=== PATIENT | female | born 2000 | race Caucasian/White ===

== ENCOUNTER 2018-06-10 01:56 | Emergency (ER) | payer SELFPAY | END 2018-06-10 03:25 | disposition home or self-care (01) | LOC: ERS 01:56 | DX: F41.0 Panic disorder [episodic paroxysmal anxiety] (principal); F32.9 Major depressive disorder, single episode, unspecified | CPT/HCPCS: 93005 ==

== ENCOUNTER 2018-08-25 12:28 | Emergency (ER) | payer SELFPAY ==
[2018-08-25] MEDS ORDERED: Dexamethasone 4 mg/ml Vial ONE (13:16)
[2018-08-25] MEDS ORDERED: Ibuprofen 800 MG TAB ONE (13:16)
== END 2018-08-25 14:00 | disposition home or self-care (01) ==
LOC: ERS 12:28
DX: J02.9 Acute pharyngitis, unspecified (principal); F41.9 Anxiety disorder, unspecified; F32.9 Major depressive disorder, single episode, unspecified; Z79.899 Other long term (current) drug therapy
CPT/HCPCS: 87081; 87430; 99283; J1100

== ENCOUNTER 2018-11-27 14:17 | Emergency (ER) | payer SELFPAY ==
[2018-11-27 15:19] LABS: Pregnancy Test - Urine (BHCG) Negative (Negative); Pregu Control Background? CLEAR/WHITE (CLR/WHITE); Pregu Control Bar Appear? YES (CONTROL BAR)
[2018-11-27 15:21] LABS: Bilirubin 1+ (Negative); Blood, Urine 3+ (Negative); Clarity Turbid (Clear); Glucose, Urine (Dipstick) Normal (Negative); Leukocyte 75 Leu/uL (Negative); Nitrite Negative (Negative); Protein, Urine (Dipstick) 300 mg/dL (Neg-Trace)
[2018-11-27 15:33] LABS: Bacteria/HPF 1+ HPF (None Seen); Mucous/LPF 3+ LPF (<2+)
[2018-11-27 15:34] LABS: Renal Epithelial 0-3 HPF (None Seen); Transitional Epithelial 0-3 HPF (None Seen)
--- NOTE | 2018-11-27 15:51 | RAD ---
Chest 2 views HISTORY: Dyspnea. Cough. FINDINGS: Cardiac silhouette and pulmonary vasculature are unremarkable. Mediastinum is midline. No c onfluent airspace consolidation, pneumothorax, or pleural fluid. IMPRESSION: No active cardiopulmonary abnormalities are demonstrated.
[2018-11-27] MEDS ORDERED: cefTRIAXone\\ROCEPHIN 1 GM VIAL ONE (16:26)
[2018-11-27] MEDS ORDERED: Azithromycin 250 MG TAB ONE (16:26)
[2018-11-27] MEDS ORDERED: Lidocaine 1% PF 5 ML VIAL ONE (16:27)
[2018-12-01 21:05] LABS: Chlamydia by PCR Inconclusive (NotDetected); GC by PCR Inconclusive (NotDetected)
== END 2018-11-27 17:43 | disposition home or self-care (01) ==
LOC: ERS 14:17
DX: N39.0 Urinary tract infection, site not specified (principal); N76.0 Acute vaginitis; N93.9 Abnormal uterine and vaginal bleeding, unspecified; F41.9 Anxiety disorder, unspecified; F32.9 Major depressive disorder, single episode, unspecified
CPT/HCPCS: 71046; 81003; 81015; 81025; 87480; 87491; 87510; 87591; 87660; 96372; J0696; J2001

== ENCOUNTER 2019-12-06 18:07 | Emergency (ER) | payer SELFPAY ==
[2019-12-06] MEDS ORDERED: diphenhydrAMINE 25 MG CAP ONE (19:24)
[2019-12-06] MEDS ORDERED: predniSONE 20 MG TAB ONE (19:24)
[2019-12-06] MEDS ORDERED: Famotidine 20 MG TAB ONE (19:24)
== END 2019-12-06 20:42 | disposition home or self-care (01) ==
LOC: ERS 18:07
DX: T78.1XXA Other adverse food reactions, not elsewhere classified, initial encounter (principal); F41.9 Anxiety disorder, unspecified; F32.9 Major depressive disorder, single episode, unspecified
CPT/HCPCS: 99283; J7512; Q0163

== ENCOUNTER 2020-06-11 22:26 | Emergency (ER) | payer SELFPAY ==
[2020-06-11 22:50] LABS: Bacteria/HPF 2+ HPF (None Seen); Bilirubin Negative (Negative); Blood, Urine Negative (Negative); Clarity Clear (Clear); Glucose, Urine (Dipstick) Normal (Negative); Ketone, Urine Negative (Negative); Leukocyte 500 Leu/uL (Negative); Mucous/LPF Rare LPF (<2+); Nitrite Negative (Negative); Pregnancy Test - Urine (BHCG) Negative (Negative); Pregu Control Background? CLEAR/WHITE (CLR/WHITE); Pregu Control Bar Appear? YES (CONTROL BAR); Protein, Urine (Dipstick) 30 mg/dL (Neg-Trace); RBC/HPF 0-3 HPF (0-3); Specific Gravity 1.033 (1.002-1.036); Specific Gravity, Urine 1.033 (1.002-1.036); Squamous Epithelial 0-3 HPF (0-3); Urobilinogen Greater than 12 mg/dL (Less than 2); pH, Urine 7.5 (5.0-9.0)
[2020-06-11 22:54] LABS: #Eosinphils 0.1 thou/uL (0.0-0.7); #Monocytes 0.8 thou/uL (0.11-0.59); #Neutrophils 2.8 thou/uL (1.40-6.50); %Basophils 0.5 % (0.0-1.0); %Eosinophils 2.4 % (0.0-10.0); %Lymphocytes 34.6 % (21.0-51.0); %Neutrophils 48.5 % (42.0-75.0); Hemoglobin 15.3 g/dL (12.0-16.0); Mean Corpuscular HGB CONC 33.7 g/dL (32.0-36.0); Mean Corpuscular Hemoglobin 30.3 pg (27.0-31.0); Mean Corpuscular Volume 89.8 fL (78.0-98.0); Platelet Count 204 thou/uL (130-400); RBC Distribution Width 11.6 % (11.5-14.5); Red Blood Cell (RBC) Count 5.05 mill/uL (4.20-5.40); White Blood Cell (WBC) Count 5.8 thou/uL (4.8-10.8)
[2020-06-11 23:12] LABS: ALT (SGPT) 8 U/L (8-55); AST (SGOT) 15 U/L (5-34); Albumin 4.1 g/dL (3.5-5.0); Alkaline Phosphatase 103 U/L (40-110); Anion Gap 12 mmol/L (10-20); BUN (Urea Nitrogen) 11 mg/dL (7.0-18.7); Bilirubin, Total 0.6 mg/dL (0.2-1.2); Calc. Creatinine Clearance 0 mL/min (70-130); Calcium 9.2 mg/dL (7.8-10.44); Carbon Dioxide 29 mmol/L (22-29); Chloride 104 mmol/L (98-107); Globulin 3.3 g/dL (2.4-3.5); Glucose 89 mg/dL (70-105); Potassium 3.8 mmol/L (3.5-5.1); Protein, Total 7.4 g/dL (6.0-8.3); Sodium 141 mmol/L (136-145)
[2020-06-14 22:08] LABS: Chlamydia by PCR DETECTED (NotDetected); GC by PCR Not Detected (NotDetected)
== END 2020-06-11 23:47 | disposition home or self-care (01) ==
LOC: ERS 22:26
DX: N39.0 Urinary tract infection, site not specified (principal)
CPT/HCPCS: 36415; 80053; 81003; 81015; 81025; 85025; 87086; 87480; 87491; 87510; 87591; 87660; 99283

== ENCOUNTER 2020-08-27 20:17 | Emergency (ER) | payer SELFPAY ==
[2020-08-27] MEDS ORDERED: HYDROcodone/Acetaminophen 5/325 mg Tablet ONE (20:30)
== END 2020-08-27 21:30 | disposition home or self-care (01) ==
LOC: ERS 20:17
DX: M25.562 Pain in left knee (principal)

== ENCOUNTER 2020-08-31 21:06 | Emergency (ER) | payer OTHER, SELFPAY ==
[2020-08-31] MEDS ORDERED: HYDROcodone/Acetaminophen 10/325 mg Tablet ONE (23:23)
== END 2020-09-01 02:30 | disposition home or self-care (01) ==
LOC: ERS 21:06
DX: M25.562 Pain in left knee (principal); W50.0XXA Accidental hit or strike by another person, initial encounter; Y92.831 Amusement park as the place of occurrence of the external cause